=== PATIENT | male | born 1930 | race Caucasian/White ===

== ENCOUNTER 2016-09-26 09:53 | Day surgery (SDC) | payer MEDICARE, BC ==
[2016-09-26] MEDS ORDERED: PROPOFOL 10 MG/ML EMU IV ONE (10:36)
[2016-09-26] MEDS ORDERED: FENTANYL CITRATE 50 MCG/ML SOL ONE (10:36)
[2016-09-26] MEDS ORDERED: LIDOCAINE HCL 1% MPF SOL ONE (10:38)
[2016-09-26] MEDS ORDERED: MIDAZOLAM 2 MG/2 ML SOL ONE (10:43)
[2016-09-26] MEDS ORDERED: ONDANSETRON HCL 4 MG/2 ML SOL ONE (10:44)
[2016-09-26] MEDS: LIDOCAINE HCL 2% MPF SOL ONE ×2 (11:36→11:48)
[2016-09-26] MEDS: BUPIVACAINE HCL 0.5% MPF 10 ML SOL ONE ×2 (11:36→11:48)
[2016-09-26 12:23] VITALS: O2SAT 96
[2016-09-26 12:55] VITALS: BP 160/81; PULSE 54; RESP 20; TEMP 96.9
== END 2016-09-26 13:35 | disposition home or self-care (01) | DRG 74 ==
LOC: SURG 09:53
PROVIDERS: ATTEND Orthopaedic Surgery
DX: G56.03 Carpal tunnel syndrome, bilateral upper limbs (principal)
CPT/HCPCS: J2250; J2405; J3010; A6402; J2001; J2704

== ENCOUNTER 2018-05-28 09:58 | Inpatient (IN) | payer MEDICARE, BC ==
[2018-05-28 10:29] LABS: BASOPHILS % (AUTO) 0 % (0-3); EOSINOPHILS % (AUTO) 0 % (0-9); HEMATOCRIT 46 % (39-53); HEMOGLOBIN 15.3 gm/dl (13.5-17.7); LYMPHOCYTES % (AUTO) 27.4 % (10-50); MEAN CORPUSCULAR HEMOGLOBIN 30.8 pg (27.0-32.0); MEAN CORPUSCULAR HGB CONC 33.3 gm/dl (32.0-36.0); MEAN CORPUSCULAR VOLUME 93 fL (80-100); MONOCYTES % (AUTO) 9.8 % (0-12); NEUTROPHILS % (AUTO) 61.9 % (37-80)
[2018-05-28 10:46] LABS: ALBUMIN 3.4 gm/dl (3.4-5.0); ALKALINE PHOSPHATASE 61 IU/L (46-116); ALT 24 IU/L (14-63); AST 22 IU/L (15-37); BILIRUBIN,TOTAL 1.2 mg/dl (0.2-1.0); BLOOD UREA NITROGEN 20 mg/dl (7-18); CALCIUM 8.8 mg/dl (8.5-10.1); CARBON DIOXIDE 26.4 mEq/L (21-32); CHLORIDE 100 mMol/L (98-107); CREATININE 1.44 mg/dl (0.80-1.30); GLUCOSE 149 mg/dl (74-106); SODIUM 135 mMol/L (136-145); TOTAL PROTEIN 7.4 gm/dl (6.4-8.2); TROP I < 0.017 ng/ml (0.000-0.056)
[2018-05-28 11:25] LABS: INR 1.02 (0.86-1.12)
[2018-05-28] MEDS: ENOXAPARIN 30 MG SOL SC SCH (17:31)
[2018-05-28] MEDS: SODIUM CHLORIDE 0.9% FLUSH 10 ML SOL IV SCH ×3 (17:35→21:50)
[2018-05-28] MEDS: CHOLESTYRAMINE 4 GM PO SCH (20:46)
[2018-05-28] MEDS: ROSUVASTATIN 40MG TAB PO SCH (20:47)
[2018-05-28] MEDS ORDERED: CEFTRIAXONE 1 GM PDS ONE ×2 (21:28→21:38)
[2018-05-28] MEDS ORDERED: SODIUM CHLORIDE 0.9% 50 ML 50 ML IV ONE ×2 (21:28→21:38)
[2018-05-28] MEDS: AZITHROMYCIN 250 MG TAB PO SCH (21:44)
[2018-05-28] MEDS: CEFTRIAXONE 1 GM PDS 1 GM in SODIUM CHLORIDE 0.9% 50 ML 50 ML IV SCH (21:50)
[2018-05-29] MEDS: PANTOPRAZOLE SODIUM 40 MG ECT PO SCH (06:55)
[2018-05-29] MEDS: SODIUM CHLORIDE 0.9% FLUSH 10 ML SOL IV SCH ×3 (06:55→21:00)
[2018-05-29] MEDS: FUROSEMIDE 20 MG TAB PO SCH (08:53)
[2018-05-29] MEDS: ASPIRIN 325 MG TAB PO SCH (08:53)
[2018-05-29] MEDS: CHOLESTYRAMINE 4 GM PO SCH ×2 (08:53→20:58)
[2018-05-29] MEDS: METOPROLOL SUCCINATE 50 MG ER TAB PO SCH (08:54)
[2018-05-29] MEDS: LISINOPRIL 20 MG TAB PO SCH (08:54)
[2018-05-29] MEDS ORDERED: CEFTRIAXONE 1 GM PDS ONE ×2 (08:55→20:49)
[2018-05-29] MEDS ORDERED: SODIUM CHLORIDE 0.9% 50 ML 50 ML IV ONE ×2 (08:55→20:49)
[2018-05-29] MEDS: ENOXAPARIN 30 MG SOL SC SCH (08:56)
[2018-05-29] MEDS: AZITHROMYCIN 250 MG TAB PO SCH (08:56)
[2018-05-29] MEDS: CEFTRIAXONE 1 GM PDS 1 GM in SODIUM CHLORIDE 0.9% 50 ML 50 ML IV SCH ×2 (09:01→20:59)
[2018-05-29] MEDS: ROSUVASTATIN 40MG TAB PO SCH (20:59)
[2018-05-30] MEDS: SODIUM CHLORIDE 0.9% FLUSH 10 ML SOL IV SCH ×4 (06:50→21:22)
[2018-05-30] MEDS: PANTOPRAZOLE SODIUM 40 MG ECT PO SCH (06:50)
[2018-05-30] MEDS ORDERED: CEFTRIAXONE 1 GM PDS ONE ×2 (09:01→20:57)
[2018-05-30] MEDS ORDERED: SODIUM CHLORIDE 0.9% 50 ML 50 ML IV ONE ×2 (09:01→20:57)
[2018-05-30] MEDS: CEFTRIAXONE 1 GM PDS 1 GM in SODIUM CHLORIDE 0.9% 50 ML 50 ML IV SCH ×2 (09:47→21:21)
[2018-05-30] MEDS: ASPIRIN 325 MG TAB PO SCH (09:48)
[2018-05-30] MEDS: CHOLESTYRAMINE 4 GM PO SCH ×2 (09:50→21:21)
[2018-05-30] MEDS: FUROSEMIDE 20 MG TAB PO SCH (09:50)
[2018-05-30] MEDS: AZITHROMYCIN 250 MG TAB PO SCH (09:51)
[2018-05-30] MEDS: LISINOPRIL 20 MG TAB PO SCH (09:51)
[2018-05-30] MEDS: METOPROLOL SUCCINATE 50 MG ER TAB PO SCH (09:52)
[2018-05-30] MEDS: ENOXAPARIN 30 MG SOL SC SCH (09:57)
[2018-05-30] MEDS: ROSUVASTATIN 40MG TAB PO SCH (21:20)
[2018-05-31] MEDS: SODIUM CHLORIDE 0.9% FLUSH 10 ML SOL IV SCH ×4 (06:11→22:06)
[2018-05-31] MEDS: PANTOPRAZOLE SODIUM 40 MG ECT PO SCH (06:56)
[2018-05-31] MEDS ORDERED: CEFTRIAXONE 1 GM PDS ONE ×2 (09:39→20:35)
[2018-05-31] MEDS: CEFTRIAXONE 1 GM PDS 1 GM in SODIUM CHLORIDE 0.9% 50 ML 50 ML IV SCH ×2 (09:44→20:56)
[2018-05-31] MEDS: METOPROLOL SUCCINATE 50 MG ER TAB PO SCH (09:45)
[2018-05-31] MEDS: ASPIRIN 325 MG TAB PO SCH (09:45)
[2018-05-31] MEDS: FUROSEMIDE 20 MG TAB PO SCH (09:45)
[2018-05-31] MEDS: CHOLESTYRAMINE 4 GM PO SCH ×2 (09:46→20:58)
[2018-05-31] MEDS: AZITHROMYCIN 250 MG TAB PO SCH (09:46)
[2018-05-31] MEDS: LISINOPRIL 20 MG TAB PO SCH (09:46)
[2018-05-31] MEDS: ENOXAPARIN 30 MG SOL SC SCH (09:53)
[2018-05-31] MEDS ORDERED: SODIUM CHLORIDE 0.9% 50 ML 50 ML IV ONE (20:35)
[2018-05-31 20:51] VITALS: PULSE 66
[2018-05-31] MEDS: ROSUVASTATIN 40MG TAB PO SCH (20:58)
[2018-06-01] MEDS: PANTOPRAZOLE SODIUM 40 MG ECT PO SCH (06:02)
[2018-06-01] MEDS: SODIUM CHLORIDE 0.9% FLUSH 10 ML SOL IV SCH ×2 (06:02→08:33)
[2018-06-01 08:09] VITALS: BP 178/70; RESP 20; TEMP 97.6; O2SAT 97
[2018-06-01] MEDS: ASPIRIN 325 MG TAB PO SCH (08:27)
[2018-06-01] MEDS: CHOLESTYRAMINE 4 GM PO SCH (08:28)
[2018-06-01] MEDS: FUROSEMIDE 20 MG TAB PO SCH (08:30)
[2018-06-01] MEDS: ENOXAPARIN 30 MG SOL SC SCH (08:30)
[2018-06-01] MEDS: LISINOPRIL 20 MG TAB PO SCH (08:32)
[2018-06-01] MEDS: METOPROLOL SUCCINATE 50 MG ER TAB PO SCH (08:32)
[2018-06-01] MEDS: AZITHROMYCIN 250 MG TAB PO SCH (08:33)
[2018-06-01] MEDS ORDERED: SODIUM CHLORIDE 0.9% 50 ML 50 ML IV ONE (09:02)
[2018-06-01] MEDS ORDERED: CEFTRIAXONE 1 GM PDS ONE (09:02)
[2018-06-01] MEDS: CEFTRIAXONE 1 GM PDS 1 GM in SODIUM CHLORIDE 0.9% 50 ML 50 ML IV SCH (09:17)
== END 2018-06-01 12:55 | disposition home or self-care (01) | DRG 312 ==
LOC: ED 09:58 → ACUTE CARE 12:52 → OBSVTOIN 12:52
PROVIDERS: ADMIT Family Medicine; ATTEND Family Medicine
DX: R55 Syncope and collapse (principal); R41.0 Disorientation, unspecified; J18.1 Lobar pneumonia, unspecified organism; I62.9 Nontraumatic intracranial hemorrhage, unspecified; I25.10 Atherosclerotic heart disease of native coronary artery without angina pectoris; M79.604 Pain in right leg; M16.11 Unilateral primary osteoarthritis, right hip; T14.8XXA Other injury of unspecified body region, initial encounter; R42 Dizziness and giddiness
CPT/HCPCS: 36415; 70450; 70544; 70549; 70551; 71046; 73501; 73721; 80053; 84484; 85025; 85610; 85730; 93005; 93306; 99283; J0696; A9270-GY; A9585; J1650